=== PATIENT | male | born 1980 | race African-American/Black ===

== ENCOUNTER 2021-06-18 23:01 | Emergency (ER) | payer OTHER ==
[~2021-06-18] VITALS: Ht 172.7 cm; Wt 81.8 kg
[2021-06-18] MEDS ORDERED: ALBU8HFA PO (23:48)
[2021-06-18] MEDS ORDERED: BENZ-16 PO (23:48)
[2021-06-19 01:10] VITALS: BP 135/99
== END 2021-06-19 01:11 | disposition home or self-care (01) ==
LOC: ER 23:03
DX: U07.1 COVID-19 (principal); Z79.899 Other long term (current) drug therapy
CPT/HCPCS: 87635; 99283; C9803